=== PATIENT | female | born 1940 | race Caucasian/White ===

== ENCOUNTER → 2016-11-04 | Outpatient (CLI) | payer MEDICARE ==
--- NOTE | 2016-11-05 13:04 | MM ---
Reason for exam: screening (asymptomatic). Last mammogram was performed 1 year and 1 month ago. History: Patient is postmenopausal. Took estrogen for 6 months. Physical Findings: A clinical breast exam by your physician is recommended on an annual basis and results should be correlated with mammographic findings. MG 3D Screening Mammo W/Cad Bilateral CC and MLO view(s) were taken. Prior study comparison: October 16, 2015, bilateral MG 3d screening mammo w/cad. September 27, 2014, bilateral MG screening mammo w CAD. There are scattered fibroglandular densities. Finding: There are few typically benign round calcifications in both breasts. There is no discrete abnormality. ASSESSMENT: Benign, BI-RAD 2 RECOMMENDATION: Routine screening mammogram of both breasts in 1 year.
== END | disposition home or self-care (01) ==
LOC: RADMAMWWP 07:55
PROVIDERS: ATTEND Obstetrics & Gynecology
DX: Z12.31 Encounter for screening mammogram for malignant neoplasm of breast (principal)
CPT/HCPCS: 77063; G0202

== ENCOUNTER → 2017-11-28 | Outpatient (CLI) | payer MEDICARE ==
--- NOTE | 2017-11-30 09:45 | MM ---
Reason for exam: screening (asymptomatic). Last mammogram was performed 1 year and 1 month ago. History: Patient is postmenopausal. Took estrogen for 6 months. Physical Findings: A clinical breast exam by your physician is recommended on an annual basis and results should be correlated with mammographic findings. MG 3D Screening Mammo W/Cad Bilateral CC and MLO view(s) were taken. Prior study comparison: November 04, 2016, bilateral MG 3d screening mammo w/cad. October 16, 2015, bilateral MG 3d screening mammo w/cad. No significant changes when compared with prior studies. ASSESSMENT: Incomplete: need additional imaging evaluation, BI-RAD 0 RECOMMENDATION: Ultrasound of the left breast. (medially at the site of lump) [facility] will attempt to contact patient to return for ultrasound.
== END | disposition home or self-care (01) ==
LOC: RADMAMWWP 14:49
PROVIDERS: ATTEND Obstetrics & Gynecology
DX: Z12.31 Encounter for screening mammogram for malignant neoplasm of breast (principal)
CPT/HCPCS: 77063; 77067

== ENCOUNTER → 2017-12-05 | Outpatient (CLI) | payer MEDICARE ==
--- NOTE | 2017-12-06 12:24 | USB ---
Reason for exam: additional evaluation requested from abnormal screening. History: Patient is postmenopausal. Took estrogen for 6 months. Physical Findings: Nurse Summary: left breast palpable medial aspect, 9 o'clock, movable, soft, 1 x 1cm, non-tender only felt with patient lying flat, mimics right breast medial tissue at 3 o'clock (nurse ts). US Breast Workup Limited LT Left limited breast ultrasound including focal area of concern, retroareolar and axilla demonstrates no cystic or solid lesion seen. Scanned 9-12 o'clock. No solid or cystic lesion at the palpable site, 9 o'clock. These results were verbally communicated with the patient and result sheet given to the patient on 12/05/17. ASSESSMENT: Negative, BI-RAD 1 RECOMMENDATION: Return to routine screening mammogram schedule for both breasts. Manage on a clinical basis with regard to any suspicious palpable abnormality.
== END | disposition home or self-care (01) ==
LOC: RADUSWWP 14:41
PROVIDERS: ATTEND Obstetrics & Gynecology
DX: R92.8 Other abnormal and inconclusive findings on diagnostic imaging of breast (principal)

== ENCOUNTER → 2018-12-18 | Outpatient (CLI) | payer MEDICARE ==
--- NOTE | 2018-12-20 09:45 | MM ---
Reason for exam: screening (asymptomatic). Last mammogram was performed 1 year and 1 month ago. History: Patient is postmenopausal. Took estrogen for 6 months. Physical Findings: A clinical breast exam by your physician is recommended on an annual basis and results should be correlated with mammographic findings. MG 3D Screening Mammo W/Cad Bilateral CC and MLO view(s) were taken. Prior study comparison: November 28, 2017, bilateral MG 3d screening mammo w/cad. November 04, 2016, bilateral MG 3d screening mammo w/cad. No significant changes when compared with prior studies. ASSESSMENT: Benign, BI-RAD 2 RECOMMENDATION: Routine screening mammogram of both breasts in 1 year.
== END | disposition home or self-care (01) ==
LOC: RADMAMWWP 11:38
PROVIDERS: ATTEND Obstetrics & Gynecology
DX: Z12.31 Encounter for screening mammogram for malignant neoplasm of breast (principal)
CPT/HCPCS: 77063; 77067

== ENCOUNTER → 2019-11-12 | Outpatient (CLI) | payer MEDICARE ==
[2019-11-12 12:24] LABS: HCT 41.2 % (34.0-46.0); HGB 14.3 gm/dL (11.4-16.0); MCH 32.2 pg (25.0-35.0); MCHC 34.8 g/dL (31.0-37.0); MCV 92.7 fL (80.0-100.0); Platelet Count 159 k/uL (150-450); RBC 4.45 m/uL (3.80-5.40); RDW 13.4 % (11.5-15.5); WBC 6.5 k/uL (3.8-10.6)
== END | disposition home or self-care (01) ==
LOC: LABPAT 11-07 09:50
PROVIDERS: ATTEND Internal Medicine Interventional Cardiology
DX: Z01.818 Encounter for other preprocedural examination (principal); I25.10 Atherosclerotic heart disease of native coronary artery without angina pectoris
CPT/HCPCS: 36415; 80051; 82565; 84520; 85027

== ENCOUNTER 2019-11-20 09:15 | Day surgery (SDC) | payer MEDICARE ==
[2019-11-14 15:07] VITALS: BMI 31.1
[~2019-11-20 09:15] MED LIST: ALPRAZolam 0.25 MG TAB PO PRN; ALPRAZolam 0.5 MG TAB PO PRN; ASPIRIN 325 MG TAB PO STA; NITROGLYCERIN SL TABS 0.4 MG TAB SUBLINGUAL PRN; SODIUM CHLORIDE 0.9% 1,000 ML in EMPTY BAG 1 BAG IV ONE
[2019-11-20] MEDS ORDERED: SODIUM CHLORIDE 0.9% 1,000 ML IV ONE (09:54)
[2019-11-20 09:56] VITALS: RESP 16
[2019-11-20] MEDS ORDERED: LIDOCAINE 1% INJ 10MG/ML (20 ML MDV) ONE (11:46)
[2019-11-20] MEDS ORDERED: MIDAZOLAM 2 MG/2 ML VIAL IV ONE (12:00)
[2019-11-20] MEDS ORDERED: LIDOCAINE 1% INJ 10MG/ML (20 ML MDV) SQ ONE (12:02)
[2019-11-20] MEDS ORDERED: IOPAMIDOL-370 100ML BTL INJ ONE ×3 (12:28→13:27)
[2019-11-20] MEDS ORDERED: BIVALIRUDIN BOLUS 250 MG/50 ML IV ONE (12:44)
[2019-11-20] MEDS ORDERED: BIVALIRUDIN 250 MG in SODIUM CHLORIDE 0.9% 50 ML IV ONE (12:44)
[2019-11-20] MEDS ORDERED: niCARdipine 25 MG/10 ML VIAL ONE (13:02)
[2019-11-20] MEDS ORDERED: niCARdipine Syringe (1,000 mcg/10 mL) INTRACORON ONE (13:10)
[2019-11-20] MEDS: niCARdipine Syringe (1,000 mcg/10 mL) INTRACORON ONE ×2 (13:22→13:27)
[2019-11-20] MEDS ORDERED: CLOPIDOGREL 75 MG TAB ONE (13:25)
[2019-11-20] MEDS ORDERED: CLOPIDOGREL 75 MG TAB PO ONE (13:26)
[2019-11-20] MEDS ORDERED: MAG HYDROX/AL HYDROX/SIMETH 30 ML CUP PO PRN (13:53)
[2019-11-20] MEDS ORDERED: ZOLPIDEM 5 MG TAB PO PRN (13:53)
[2019-11-20] MEDS ORDERED: RX INFO: IV CONTRAST WAS GIVEN 1 EACH MISC MISCELLANE PRN (13:53)
[2019-11-20] MEDS ORDERED: ATROPINE SULFATE 0.1 MG/ML 10ML SYRINGE IV PRN (13:53)
--- NOTE | 2019-11-20 17:27 | PCN ---
PROCEDURE NOTE DATE OF SERVICE: 11/20/2019. PROCEDURE: 1. Coronary angiography, selective injection of bypass grafts and left internal mammary artery injection. 2. Percutaneous transluminal coronary angioplasty and stenting of a totally occluded saphenous vein graft to the obtuse marginal branch of circumflex with 2 drug- eluting stents. PERFORMED BY: Dr. Laura Montoya. Moderate conscious sedation time was 90 minutes. Patient was administered Versed. Oxygen saturation, hemodynamics and EKG were monitored closely. CLINICAL INFORMATION: Mrs. Janel Penn is an 79-year-old lady with a known history of CAD and abdominal aortic aneurysm, status post surgical repair. She had a bypass surgery in 2007 with a left internal mammary artery graft to LAD, vein graft to the first diagonal, vein graft to the obtuse marginal and vein graft to the PDA branch of RCA. Because of a strongly positive stress test and symptoms of angina, she was advised coronary angiography after due discussion regarding risks, benefits and options. PROCEDURE NOTE: Under local anesthesia and strict aseptic precautions, a 6-Trinid[place] introducer was placed in the right femoral artery. Using a JL4 catheter, I performed selective coronary angiography of the left coronary artery. A Mendoza catheter was used to perform selective coronary angiography of the left internal mammary artery graft. I used an AR2 catheter to perform selective coronary angiography of the [place] RCA, vein graft to the right coronary artery as well as vein graft to the diagonal branch and vein graft to the obtuse marginal branch. LV pressures were not obtained. Following the cardiac cath I proceeded to perform PCI of a totally occluded vein graft to the obtuse marginal, which was the culprit vessel where ischemia was noted in the anterolateral wall. CORONARY ANGIOGRAPHY FINDINGS: LEFT MAIN CORONARY ARTERY: This is a short vessel that has a distal lesion of about 50% and it bifurcates into LAD and circumflex. The lesion is about 50%, located in the body of the left main. It bifurcates into LAD and circumflex. LEFT ANTERIOR DESCENDING CORONARY ARTERY: This vessel is totally occluded after diagonal branch and the diagonal branch has 80% stenosis, and a septal branch is free of significant disease. LAD is 100% occluded. LEFT POSTERIOR CIRCUMFLEX CORONARY ARTERY: This vessel gives off a first obtuse marginal that has a long area of 90% disease and there is competitive flow to some extent, but the flow in the obtuse marginal is pretty much limited, and obtuse marginal is widely patent but appears small because of reduced flow. Continuation of circumflex in the AV groove is diffusely diseased. RIGHT CORONARY ARTERY: This vessel is totally occluded with very limited antegrade flow. The entire RCA is diseased all the way to the bifurcation and then it opacifies the PDA and PLV branches, but the entire vessel is diffusely disease with stenosis in the range of 80% to 90%. SAPHENOUS VEIN GRAFT TO THE PDA branch of RCA: Body of the graft at the origin is free of significant disease. In the proximal portion of the body there is a 60% to 70% narrowing. In the mid portion there is a 90% narrowing and the attachment is free of significant disease. The PDA has mild diffuse disease throughout. The RCA graft is therefore significantly diseased in the body of the graft. SAPHENOUS VEIN GRAFT TO THE OBTUSE MARGINAL BRANCH OF CIRCUMFLEX: This graft is totally occluded, seen as a stump. SAPHENOUS VEIN GRAFT TO THE DIAGONAL BRANCH OF LAD: This graft is patent, has about a 30% to 40% narrowing and brisk flow. Opacified diagonal is free of significant disease. FINAL IMPRESSION: This patient has a totally occluded LAD and highly diseased circumflex marginal. RCA has diffuse disease of 80% to 90% all the way to the bifurcation. Vein graft to RCA is patent with 2 areas of disease in the body of the graft of 60% and 90%. Vein graft to the obtuse marginal is totally occluded 100% culprit lesion. The HENRY to LAD is patent, but I did not get a good selective injection. The vein graft to the diagonal is patent with 30% to 40% narrowing. The left internal mammary artery graft was subselectively injected, but there is decent flow and no significant disease noted based on the available angiograms. RECOMMENDATIONS: I recommended PCI of the obtuse marginal vein graft that was totally occluded and proceeded to perform this in the same setting. PCI PROCEDURE DETAILS: The patient was administered 600 mg of Plavix and Angiomax bolus and infusion was given. I used a left bypass guide catheter to cannulate the vein graft to the obtuse marginal. A run-through wire was used to cross the lesion with the help of a 2.5 balloon. I was able to cross the lesion. Wire was kept distally in the [place] circumflex marginal. Multiple inflations were then given with a 3.0 balloon. Then I switched over to a 3.5 caliber NC Emerge balloon of 20 mm length and the entire vessel was dilated throughout. Subsequently I deployed two 4.0 caliber stents. The distal stent was a 38 mm long 4.0 stent and telescoping into it proximally was an 18 mm stent. Excellent angiographic result without complication was achieved. Patient did not have any symptoms. A brisk ARLEN-3 flow was noted. There is some diffuse disease in the distal half of the graft, but I did not put any additional stents. The flow into the vessel was excellent with a good blush. The sheath was taken out and Angio-Seal device used to secure hemostasis. The patient was sent to the room in a stable condition. Results were discussed with the patient and family. I expect she will be discharged tomorrow if she remains stable. The patient will need RCA graft intervention, which will be performed in 3 weeks. Circumflex graft intervention was excellent with a very nice result. MMDOMINGOL / NAZARION: [id number] /
[2019-11-20] MEDS: SODIUM CHLORIDE 0.9% 1,000 ML IV SCH ×3 (19:00→22:31)
[2019-11-20] MEDS: METOPROLOL TARTRATE 25 MG TAB PO SCH (20:04)
[2019-11-20] MEDS ORDERED: ATORVASTATIN 80 MG TAB PO SCH (21:00)
[2019-11-21 06:54] LABS: Basophils % (A) 1 %; Eosinophils # (A) 0.1 k/uL (0-0.7); Eosinophils % (A) 3 %; HCT 38.9 % (34.0-46.0); HGB 12.5 gm/dL (11.4-16.0); Lymphocytes # (A) 0.8 k/uL (1.0-4.8); Lymphocytes % (A) 19 %; MCH 30.2 pg (25.0-35.0); MCV 94.3 fL (80.0-100.0); Mean Platelet Volume 7.7; Monocytes # (A) 0.3 k/uL (0-1.0); Monocytes % (A) 8 %; Neutrophils # (A) 2.8 k/uL (1.3-7.7); Neutrophils % (A) 67 %; Platelet Count 124 k/uL (150-450); RBC 4.13 m/uL (3.80-5.40); RDW 13.5 % (11.5-15.5); WBC 4.1 k/uL (3.8-10.6)
[2019-11-21 07:00] LABS: African American GFR (CKD) >90 (>60 ml/min/1.73 sqM); Anion Gap 7 mmol/L; Blood Urea Nitrogen 16 mg/dL (7-17); Calcium 8.4 mg/dL (8.4-10.2); Carbon Dioxide 20 mmol/L (22-30); Chloride 110 mmol/L (98-107); Glucose 95 mg/dL (74-99); Non-African American GFR(CKD) 87 (>60 ml/min/1.73 sqM); Sodium 137 mmol/L (137-145)
[2019-11-21 07:02] LABS: Potassium 4.2 mmol/L (3.5-5.1)
[2019-11-21] MEDS: METOPROLOL TARTRATE 25 MG TAB PO SCH (08:49)
[2019-11-21] MEDS ORDERED: hydroCHLOROthiazide 25 MG TAB PO SCH (09:00)
[2019-11-21] MEDS ORDERED: CHOLECALCIFEROL 1,000 UNIT TAB PO SCH (09:00)
[2019-11-21] MEDS ORDERED: LOSARTAN 50 MG TAB PO SCH (09:00)
[2019-11-21] MEDS ORDERED: CLOPIDOGREL 75 MG TAB PO SCH (09:00)
[2019-11-21] MEDS ORDERED: NON FORMULARY DRUG (Omega-3 Fatty Acids/Fish Oil [Fish Oil 1,000 Mg Softgel] 1 EACH) PO SCH (09:00)
[2019-11-21] MEDS ORDERED: ASPIRIN 81 MG PO SCH (09:00)
[2019-11-21] MEDS ORDERED: ISOSORBIDE MONONITRATE ER 30 MG TAB.ER.24H PO SCH (12:00)
--- NOTE | 2019-11-21 21:03 | DS ---
DISCHARGE SUMMARY DATE OF ADMISSION: 11/20/2019 DATE OF DISCHARGE: 11/21/2019. DIAGNOSES: 1. Unstable angina. 2. Hypertension. 3. Hyperlipidemia. 4. History of prior bypass surgery. 5. History of prior abdominal aortic aneurysm surgical resection. HOSPITAL COURSE: Mrs. Penn was admitted electively because of symptoms of angina and abnormal stress test. Cardiac cath revealed that the vein graft to the obtuse marginal was totally occluded. This was dilated and stented with 2 drug-eluting stents with excellent result. She has another right coronary graft which has a 90% stenosis which may be addressed later on. She also has a patent HENRY to LAD and another diagonal graft is free of significant disease. Her post-procedure course was uneventful. The right groin is clean and dry with a good pulse. Vitals are stable. No JVD. S1, S2 heard normally. Short systolic murmur noted. Lungs are clear. Abdomen and lower extremity exam unchanged. PLAN: Plan is to increase activity and discharge her today. Her laboratory data and EKG do not reveal any concerns. Discharge instructions regarding activity, diet and medications were given. I will see the patient within a week after her discharge. She will call me if there is a question, concern or problem. Patient had an excellent angiographic result, and I will address the PCI of right coronary artery at a later date. MMODL / IJN: [id number] /
[2019-11-23 05:32] VITALS: BP 135/74; PULSE 66; TEMP 98.7
== END 2019-11-21 13:28 | disposition home or self-care (01) ==
LOC: CATHCVL 09:15 → 3SCARD 18:18 → CATHCVL 11-21 13:28
PROVIDERS: ATTEND Internal Medicine Interventional Cardiology
DX: I25.110 Atherosclerotic heart disease of native coronary artery with unstable angina pectoris (principal); I25.82 Chronic total occlusion of coronary artery; I10 Essential (primary) hypertension; I71.4 Abdominal aortic aneurysm, without rupture; E78.5 Hyperlipidemia, unspecified; Z95.1 Presence of aortocoronary bypass graft
CPT/HCPCS: 93455; 80048; 85025; C9604; C1760; C1887; C1725 ×3; C1769 ×4; C1874; J2250; J2001; J0583; Q9967

== ENCOUNTER → 2019-12-07 | Outpatient (CLI) | payer MEDICARE | END | disposition home or self-care (01) | LOC: LABWHC1 10:12 | PROVIDERS: ATTEND Internal Medicine Interventional Cardiology | DX: J39.9 Disease of upper respiratory tract, unspecified (principal) | CPT/HCPCS: U0003; C9803 ==

== ENCOUNTER → 2019-12-17 | Outpatient (CLI) | payer MEDICARE ==
[2019-12-17 14:52] LABS: Potassium 4.1 mmol/L (3.5-5.1)
[2019-12-17 14:57] LABS: HCT 38.3 % (34.0-46.0); HGB 12.9 gm/dL (11.4-16.0); MCHC 33.6 g/dL (31.0-37.0); MCV 92.2 fL (80.0-100.0); Platelet Count 162 k/uL (150-450); RBC 4.16 m/uL (3.80-5.40); RDW 13.5 % (11.5-15.5); WBC 5.8 k/uL (3.8-10.6)
== END | disposition home or self-care (01) ==
LOC: LABPAT 13:44
PROVIDERS: ATTEND Internal Medicine Interventional Cardiology
DX: Z01.818 Encounter for other preprocedural examination (principal); I25.2 Old myocardial infarction
CPT/HCPCS: 36415; 80051; 82565; 84520; 85027

== ENCOUNTER 2019-12-26 09:16 | Day surgery (SDC) | payer MEDICARE ==
[~2019-12-26 09:16] MED LIST changes: +ATORVASTATIN 80 MG TAB PO STA
[2019-12-26] MEDS ORDERED: SODIUM CHLORIDE 0.9% 1,000 ML IV ONE (10:18)
[2019-12-26] MEDS ORDERED: MIDAZOLAM 2 MG/2 ML VIAL IV ONE (11:40)
[2019-12-26] MEDS ORDERED: LIDOCAINE 1% INJ 10MG/ML (20 ML MDV) SQ ONE ×2 (11:43)
[2019-12-26] MEDS: HYDROmorphone 1 MG/ML 1 ML SYRINGE IVP ONE ×2 (11:49→12:27)
[2019-12-26] MEDS ORDERED: BIVALIRUDIN BOLUS 250 MG/50 ML IV ONE (11:59)
[2019-12-26] MEDS ORDERED: BIVALIRUDIN 250 MG in SODIUM CHLORIDE 0.9% 50 ML IV ONE (11:59)
[2019-12-26] MEDS ORDERED: IOPAMIDOL-370 100ML BTL INJ ONE ×2 (12:22→12:34)
[2019-12-26] MEDS ORDERED: niCARdipine Syringe (1,000 mcg/10 mL) INTRACORON ONE (12:25)
[2019-12-26] MEDS ORDERED: CLOPIDOGREL 75 MG TAB PO ONE (12:32)
[2019-12-26] MEDS ORDERED: RX INFO: IV CONTRAST WAS GIVEN 1 EACH MISC MISCELLANE PRN (12:47)
[2019-12-26] MEDS ORDERED: NITROGLYCERIN SL TABS 0.4 MG TAB SUBLINGUAL PRN ×2 (12:47→14:58)
[2019-12-26] MEDS ORDERED: MAG HYDROX/AL HYDROX/SIMETH 30 ML CUP PO PRN (12:47)
[2019-12-26] MEDS ORDERED: ZOLPIDEM 5 MG TAB PO PRN (12:47)
[2019-12-26] MEDS ORDERED: ATROPINE SULFATE 0.1 MG/ML 10ML SYRINGE IV PRN (12:47)
--- NOTE | 2019-12-26 14:24 | PTCA ---
PERCUTANEOUSTRANS CORORONARY ANGIOGRAPHY DATE OF SERVICE: 12/26/2019. PROCEDURE: 1. Coronary angiography and selective injection of vein graft to the obtuse marginal branch of circumflex which was stented on 11/20/2019 with a drug-eluting stent. 2. PTCA and stenting of saphenous vein graft to the RCA with a filter wire protection with a drug-eluting stent. PERFORMED BY: Dr. Ramandeep Vogt, assisted by Dr. Laura Montoya. SEDATION: Moderate conscious sedation time was 53 minutes. Patient was administered Versed. Oxygen saturation, hemodynamics, EKG were monitored closely. CLINICAL INFORMATION: Mrs. Janel Penn is an 79-year-old lady with a known history of CAD, previous surgical abdominal aortic aneurysm repair. She had a previous aortocoronary bypass surgery in 2007 with a HENRY to LAD, vein graft to the first diagonal, vein graft to the obtuse marginal, vein graft to the PDA branch of RCA. Because of significant anginal symptoms on 11/20/2019, I performed coronary angiography and stenting of a totally occluded vein graft to the obtuse marginal. She is being brought in here to assess the patency of the vein graft to the obtuse marginal and then perform intervention of the RCA/PDA graft. Risks, benefits, options were reviewed. Patient understands rationale, risks, benefits, options and wishes to proceed. PROCEDURE NOTE: Under local anesthesia and strict aseptic precautions, a 6-Ukrainian introducer was placed in the right femoral artery. I used a Mendoza catheter to perform selective coronary angiography of the vein graft to the obtuse marginal and noted that it was widely patent with a ARLEN-3 flow. I then turned my attention to the RCA graft. A right coronary bypass guide catheter was used to cannulate the right coronary artery graft. The filter wire was used to cross the lesion and the filter was opened successfully well beyond the lesion in the vein graft itself. Over the filter wire, primary stenting was performed with a 3.5 caliber 12 mm Xience stent which was deployed at 13 atmospheres. Patient did not have significant symptoms. Excellent angiographic result was achieved. The filter wire could not be retrieved adequately because there was a plaque well before the site of intervention. However, the filter wire was drawn back very carefully under fluoroscopic guidance and eventually captured in the upper part of the vein graft. The filter wire along with the capture device was taken out and then the nicardipine 100 mcg was administered into the vein graft. Two injections were obtained in the TALBERT and IRISH projection. Result was excellent with ARLEN-3 flow. The sheath was then taken out. An Angio-Seal device was used to secure hemostasis. The patient received 150 mg of Plavix additionally. She was already on Plavix to begin with, along with aspirin. She also received Angiomax bolus and infusion as per protocol. The results were discussed with the patient as well as her family, specifically her sister. I expect she will be discharged tomorrow. Excellent angiographic result was achieved. MMODL / IJN: [id number] /
[2019-12-26] MEDS: METOPROLOL TARTRATE 25 MG TAB PO SCH (20:31)
[2019-12-26] MEDS: SODIUM CHLORIDE 0.9% 1,000 ML IV SCH (20:32)
[2019-12-26] MEDS ORDERED: ATORVASTATIN 80 MG TAB PO SCH (21:00)
[2019-12-27] MEDS: SODIUM CHLORIDE 0.9% 1,000 ML IV SCH (04:40)
--- NOTE | 2019-12-27 07:28 | DS ---
DISCHARGE SUMMARY DATE OF ADMISSION: 12/26/2019. DATE OF DISCHARGE: 12/27/2019 DIAGNOSES: 1. Unstable angina. 2. Coronary artery disease, status post PCI and bypass surgery. 3. Hypertension. 4. Hyperlipidemia. 5. Status post surgical repair of abdominal aortic aneurysm in the past. Mrs. Penn was brought into the hospital for elective PCI of a 90% stenosis involving a vein graft to the RCA. This was a staged intervention. About 3 to 4 weeks ago she had intervention of a totally occluded vein graft to the obtuse marginal successfully. Cardiac cath revealed that the previously stented vein graft to the obtuse marginal was widely patent. I performed stenting of a vein graft to the right coronary artery in the body of the graft with a drug-eluting stent with excellent result. Postprocedure course was uneventful. She is doing well this morning. Blood pressure is 128/70, pulse rate is about 52. No JVD. S1, S2 heard normally, short systolic murmur audible. Lungs are clear. Abdomen is soft, nontender. Right groin is clean and dry with a good pulse. Lower extremities reveal palpable distal pulses. EKG revealed a sinus mechanism with IVCD, which is unchanged. Labs are pending. Plan is to discharge her home after she gets up, ambulates and we check her labs which are pending at this time. I will see her in the office in one week. Discharge instructions regarding activity, diet and medications were given. She will continue the same medicines which include dual antiplatelet therapy and statins, and beta blockers. MMODL / IJN: [id number] /
[2019-12-27 07:52] VITALS: BP 154/68; PULSE 58; RESP 16; TEMP 97.9
[2019-12-27 07:58] LABS: Basophils % (A) 1 %; Eosinophils # (A) 0.1 k/uL (0-0.7); Eosinophils % (A) 2 %; HCT 39.2 % (34.0-46.0); HGB 12.9 gm/dL (11.4-16.0); Lymphocytes # (A) 1.2 k/uL (1.0-4.8); Lymphocytes % (A) 26 %; MCH 29.8 pg (25.0-35.0); MCHC 32.8 g/dL (31.0-37.0); MCV 90.8 fL (80.0-100.0); Mean Platelet Volume 7.8; Monocytes # (A) 0.3 k/uL (0-1.0); Monocytes % (A) 7 %; Neutrophils # (A) 2.9 k/uL (1.3-7.7); Neutrophils % (A) 62 %; Platelet Count 161 k/uL (150-450); RBC 4.32 m/uL (3.80-5.40); RDW 13.3 % (11.5-15.5); WBC 4.6 k/uL (3.8-10.6)
[2019-12-27 08:13] LABS: African American GFR (CKD) >90 (>60 ml/min/1.73 sqM); Anion Gap 7 mmol/L; Blood Urea Nitrogen 14 mg/dL (7-17); Calcium 9.1 mg/dL (8.4-10.2); Carbon Dioxide 27 mmol/L (22-30); Chloride 104 mmol/L (98-107); Glucose 119 mg/dL (74-99); Non-African American GFR(CKD) 82 (>60 ml/min/1.73 sqM); Potassium 3.6 mmol/L (3.5-5.1); Sodium 138 mmol/L (137-145)
[2019-12-27] MEDS ORDERED: MULTIVITAMINS, THERA 1 EACH TAB PO SCH (09:00)
[2019-12-27] MEDS ORDERED: NON FORMULARY DRUG (Ubidecarenone [Co Q-10] 200 MG) PO SCH (09:00)
[2019-12-27] MEDS ORDERED: NON FORMULARY DRUG (Aspirin [Adult Low Dose Aspirin Ec] 81 MG) PO SCH (09:00)
[2019-12-27] MEDS ORDERED: ASPIRIN 81 MG PO SCH (09:00)
[2019-12-27] MEDS ORDERED: CLOPIDOGREL 75 MG TAB PO SCH ×2 (09:00)
[2019-12-27] MEDS ORDERED: hydroCHLOROthiazide 25 MG TAB PO SCH (09:00)
[2019-12-27] MEDS ORDERED: CHOLECALCIFEROL 1,000 UNIT TAB PO SCH (09:00)
[2019-12-27] MEDS ORDERED: FATTY ACIDS PO SCH (09:00)
[2019-12-27] MEDS ORDERED: LOSARTAN 50 MG TAB PO SCH (09:00)
[2019-12-27] MEDS ORDERED: FISH OIL PO SCH (09:00)
[2019-12-27] MEDS ORDERED: OMEGA PO SCH (09:00)
[2019-12-27] MEDS: METOPROLOL TARTRATE 25 MG TAB PO SCH (09:18)
[2019-12-27 09:28] VITALS: BMI 30.9
[2019-12-27] MEDS ORDERED: ISOSORBIDE MONONITRATE ER 30 MG TAB.ER.24H PO SCH (12:00)
== END 2019-12-27 09:53 | disposition home or self-care (01) ==
LOC: CATHCVL 09:16 → 3NCARDOBS 14:36 → CATHCVL 12-27 09:53
PROVIDERS: ATTEND Internal Medicine Interventional Cardiology
DX: I25.110 Atherosclerotic heart disease of native coronary artery with unstable angina pectoris (principal); I10 Essential (primary) hypertension; I71.4 Abdominal aortic aneurysm, without rupture; E78.5 Hyperlipidemia, unspecified; E78.00 Pure hypercholesterolemia, unspecified; E66.9 Obesity, unspecified; Z95.1 Presence of aortocoronary bypass graft; Z79.02 Long term (current) use of antithrombotics/antiplatelets; Z79.82 Long term (current) use of aspirin; Z79.899 Other long term (current) drug therapy; Z72.0 Tobacco use; Z68.30 Body mass index [BMI] 30.0-30.9, adult; Z98.890 Other specified postprocedural states
CPT/HCPCS: 80048; 85025; C9604; C1769 ×4; C1884; C1887; C1894; C1874; J2250; J2001; J1170; J0583; Q9967

== ENCOUNTER → 2021-02-03 | Outpatient (CLI) | payer MEDICARE ==
--- NOTE | 2021-02-03 15:33 | BD ---
EXAMINATION TYPE: Axial Bone Density DATE OF EXAM: 02/03/2021 COMPARISON: NONE CLINICAL HISTORY: Height: 5 FT 1 1/2 IN Weight: 169 FRAX RISK QUESTIONS: Alcohol (3 or more units per day): NO Family History (Parent hip fracture): NO Glucocorticoids (More than 3mos): NO (Ex: prednisone, prednisolone, methylprednisolone, dexamethasone, and hydrocortisone). History of Fracture in Adulthood: NO Secondary Osteoporosis: 1. Type 1 Diabetes: NO 2. Hyperthyroidism: NO 3. Menopause before 45: NO 4. Malnutrition: NO 5. Chronic liver disease: NO Rheumatoid Arthritis: NO Current Tobacco Use: NO RISK FACTORS HISTORY OF: Surgery to Spine/Hip(right/left)/Wrist (right/left): RT HIP REPLACEMENT When: 2016 Family History of Osteoporosis: NO Active: MODERATE Diet low in dairy products/other sources of calcium: NO Postmenopausal woman: AGE 53 Take estrogen and/or progesterone medications: TOOK HRT FOR ONE YEAR Lost more than 2 inches in height since high school: YES MEDICATIONS: Additional Medications: ATORVASTATIN, PLAVIX, LISINOPRIL, METOPROLOL, Additional History: EXAM MEASUREMENTS: Bone mineral densitometry was performed using the [employer] System. Bone mineral density as measured about the Lumbar spine is: ----- L1-L4(G/cm2): 1.339 T Score Values are as follows: ----- L2: -0.6 ----- L3: 1.8 ----- L4: 3.0 ----- L1-L4: 1.3 Bone mineral density has: INCREASED 4.7 % since study of: 2015 Bone mineral density about the L hip (g/cm2): 0.866 T Score values are as follows: -----L Neck: -1.2 -----L Total: -1.2 Bone mineral density has: DECREASED -0.5 % since study of: 2015 IMPRESSION: Osteopenia (T Score between -2.5 and -1). There is slightly increased risk of fracture and the patient may be considered for treatment. Re-Screen 2-5 years. NOTE: T-SCORE=SD OF THE YOUNG ADULT MEAN.
== END | disposition home or self-care (01) ==
LOC: RADBDWWP 09:13
PROVIDERS: ATTEND Internal Medicine
DX: M85.852 Other specified disorders of bone density and structure, left thigh (principal)
CPT/HCPCS: 77080

== ENCOUNTER → 2021-07-07 | Outpatient (CLI) | payer MEDICARE ==
[2021-07-07 14:56] LABS: HCT 41.3 % (37.2-46.3); HGB 13.9 g/dL (12.0-15.0); MCH 30.7 pg (27.0-32.0); MCHC 33.7 g/dL (32.0-37.0); MCV 91.2 fL (80.0-97.0); NRBC Per 100 WBC 0 /100 WBCS (0.0-0.0); Platelet Count 174 X 10*3/uL (140-440); RBC 4.53 X 10*6/uL (4.10-5.20); RDW 13.4 % (11.5-14.5); WBC 5.62 X 10*3/uL (4.50-10.00)
[2021-07-07 15:10] LABS: African American GFR (CKD) 83.5 (60.0-200.0); Anion Gap 14.4 mmol/L (10.00-18.00); Blood Urea Nitrogen 12.9 mg/dL (9.0-27.0); Carbon Dioxide 25.8 mmol/L (20.0-27.5); Potassium 4.4 mmol/L (3.5-5.5)
[2021-07-08 13:28] LABS: Coronavirus SARS CoV-2 Not Detected (Not Detected)
== END | disposition home or self-care (01) ==
LOC: LABWHC1 09:13
PROVIDERS: ATTEND Internal Medicine Interventional Cardiology
DX: Z01.812 Encounter for preprocedural laboratory examination (principal); Z20.822 Contact with and (suspected) exposure to COVID-19; I25.10 Atherosclerotic heart disease of native coronary artery without angina pectoris
CPT/HCPCS: 80051; 82565; 84520; 85027; 36415; U0003; C9803

== ENCOUNTER 2021-07-10 06:38 | Day surgery (SDC) | payer MEDICARE ==
[2021-07-09 08:14] VITALS: BMI 30.5
[~2021-07-10 06:38] MED LIST changes: -ATORVASTATIN 80 MG TAB PO STA; -SODIUM CHLORIDE 0.9% 1,000 ML in EMPTY BAG 1 BAG IV ONE; +SODIUM CHLORIDE 0.9% 1,000 ML in EMPTY BAG 1 BAG IV SCH
[2021-07-10] MEDS ORDERED: SODIUM CHLORIDE 0.9% 1,000 ML IV ONE (06:55)
[2021-07-10] MEDS ORDERED: HEPARIN SODIUM,PORCINE 2,500 UNIT in SODIUM CHLORIDE 0.9% 250 ML IRRIGATION PRN (07:00)
[2021-07-10] MEDS ORDERED: HEPARIN SODIUM,PORCINE 10,000 UNIT in SODIUM CHLORIDE 0.9% 1,000 ML IRRIGATION PRN (07:00)
[2021-07-10] MEDS ORDERED: HEPARIN SODIUM 1,000 UN/ML (10ML VL) ONE (07:13)
[2021-07-10] MEDS ORDERED: VERAPAMIL 2.5 MG/ML 2 ML AMP ONE (07:13)
[2021-07-10] MEDS ORDERED: LIDOCAINE 1% INJ 10MG/ML (20 ML MDV) ONE (07:13)
[2021-07-10] MEDS ORDERED: fentaNYL (PF) 50 MCG/ML 2 ML AMP ONE (07:14)
[2021-07-10 07:21] VITALS: TEMP 98
[2021-07-10] MEDS: MIDAZOLAM 2 MG/2 ML VIAL IVP ONE ×2 (07:46→07:56)
[2021-07-10] MEDS ORDERED: LIDOCAINE 1% INJ 10MG/ML (20 ML MDV) SQ ONE (07:55)
[2021-07-10] MEDS ORDERED: fentaNYL (PF) 50 MCG/ML 2 ML AMP IVP ONE (08:20)
[2021-07-10] MEDS ORDERED: IOPAMIDOL-370 100ML BTL INJ ONE ×2 (08:23→08:57)
[2021-07-10] MEDS ORDERED: FUROSEMIDE 10 MG/ML 4 ML VIAL ONE (08:31)
[2021-07-10] MEDS ORDERED: FUROSEMIDE 10 MG/ML 4 ML VIAL IV ONE (08:32)
[2021-07-10] MEDS ORDERED: HEPARIN SODIUM 1,000 UN/ML (10ML VL) IVP ONE (08:33)
[2021-07-10] MEDS ORDERED: RX INFO: IV CONTRAST WAS GIVEN 1 EACH MISC MISCELLANE PRN (09:10)
[2021-07-10] MEDS ORDERED: SODIUM CHLORIDE 0.9% 1,000 ML IV SCH (09:15)
--- NOTE | 2021-07-10 10:21 | CC ---
CARDIAC CATHETERIZATION REPORT DATE OF SERVICE: 07/10/2021. PROCEDURE: 1. Left heart catheterization, coronary angiography, selective injection of bypass grafts. 2. Percutaneous transluminal coronary angioplasty of vein graft to the obtuse marginal branch of circumflex. PERFORMED BY: Dr. Laura Montoya. Moderate conscious sedation time was 58 minutes. Patient was administered Versed. Oxygen saturation, hemodynamics and EKG were monitored closely. CLINICAL INFORMATION: Mrs. Janel Penn is an 81-year-old lady with a history of CAD, prior bypass surgery in 2007 with a HENRY to LAD, three separate vein grafts to the diagonal branch of LAD, PDA branch of RCA and also to obtuse marginal branch of circumflex. Subsequently she had surgical repair of infrarenal aortic aneurysm as well. In 2019, because of unstable angina, in November I performed stenting of a totally occluded vein graft to the obtuse marginal, and in December this was patent and I opened up the PDA vein graft with a good result. Because of symptoms of exertional shortness of breath and abnormal stress test suggestive of ischemia in the inferolateral area, she was advised a repeat cardiac cath after due discussion. Risks, benefits, options, rationale were explained. PROCEDURE NOTE: Under local anesthesia and strict aseptic precautions, a 6-Setswana introducer was placed in the right femoral artery. JL4 catheter was used to perform selective coronary angiography of left coronary artery, a Mendoza catheter was used for the HENRY injection, which was a subselective injection. An AR2 catheter was used to perform selective injection of [place] RCA and the three vein grafts. A pigtail catheter was used to check LV pressure, but LV gram was not performed. Following this, I attempted the PTCA of vein graft to the obtuse marginal which was totally occluded. Two inflations were given. The wire was advanced to about the mid portion of the body of the graft, but the vessel did not open up after two inflations with a noncompliant balloon, and therefore I abandoned the procedure; this was an unsuccessful PTCA. The sheath was then taken out and Angio-Seal device used to secure hemostasis and she was sent to the room in a stable condition. Results were discussed with the patient. There was no family available. Her neighbor/friend brought her for the procedure. CARDIAC CATHETERIZATION FINDINGS: The left ventricular end-diastolic pressure was about 21 mmHg. There was no gradient across the aortic valve. CORONARY ANGIOGRAPHY FINDINGS: LEFT MAIN CORONARY ARTERY: This is a short patent vessel; may have a 30% blockage, some calcification. It bifurcates into LAD and circumflex. LEFT ANTERIOR DESCENDING CORONARY ARTERY: This vessel is totally occluded in the mid portion after a diagonal branch and no antegrade flow is noted in the LAD. LEFT POSTERIOR CIRCUMFLEX CORONARY ARTERY: This is probably a nondominant vessel, gives off a first obtuse marginal that comes off almost at 90 degrees, and there is a long 90% lesion, after which the attachment of the bypass graft is noted and then the opacified obtuse marginal beyond the bypass graft attachment appears to be of good caliber and fair distribution. The circumflex marginal therefore have a long 90% lesion. There is a groove branch that is free of significant disease, and it also gives off a left atrial circumflex branch. RIGHT CORONARY ARTERY: Dominant vessel. Diffusely diseased throughout. It has about 70% to 90% blockages and the PDA seemed to have some competitive flow distally. LEFT INTERNAL MAMMARY ARTERY GRAFT TO LAD: There was a lot of calcification and tortuosity. I had difficulty getting a selective injection. A subselective injection suggests that the HENRY is widely patent with very good flow all the way to the apex. SAPHENOUS VEIN GRAFT TO THE PDA BRANCH OF RCA: This graft is widely patent, has no significant disease at the ostium of the insertion site. The body has moderate disease. Stented area is widely patent. It opacifies the entire PDA and also the PLV branches. This graft has good flow. This was stented in December 2019. The body of graft was stented. Flow is excellent with moderate 30% to 40% disease in the body of the graft, but the origin and insertion site are free of significant disease, and opacified PDA has no significant disease. SAPHENOUS VEIN GRAFT TO THE OBTUSE MARGINAL: This graft is totally occluded, seen as a stump. This was stented in November 2019. At that time this was a total occlusion. SAPHENOUS VEIN GRAFT TO THE DIAGONAL BRANCH OF LAD: This graft has disease in the body of the graft. There are areas of disease. One area looks fairly tight. The other one is at least 50%. The tight area is probably 80%. Small-distribution graft, but the diagonal that is opacified is also small in caliber and distribution. No significant disease within the diagonal. Body of the graft has about 80% narrowing in one area and 50% in the rest of the territory. Left ventriculogram was not performed. 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 Diagonal graft also has disease in the body. One area has almost 80% and one area has 50%. Vein graft to the PDA branch of RCA is patent with decent flow, about 30% to 40% disease in body of the graft. Total occlusion of the mid LAD after diagonal branch. Left main has 30% disease. [place] RCA is diffusely diseased. Circumflex marginal has a long 90% lesion. Filling pressures are elevated, but no gradient across aortic valve. RECOMMENDATIONS: I recommended PTCA of the totally occluded obtuse marginal graft and proceeded to perform this in the same setting. PERCUTANEOUS TRANSLUMINAL CORONARY ANGIOPLASTY PROCEDURE DETAILS: I used a left bypass guide catheter and a long Whisper wire with a SuperCross catheter. With this I was able to cross the total occlusion and went about to the proximal one third of the body of the graft. Beyond this I could not advance the wire, even with the SuperCross. I then gave two inflations with a 3.0, 12 mm NC Trek balloon, but not much antegrade flow was noted. It appeared that this is a chronic occlusion and probability of success rate is low, and also the possibility of keeping this vessel open is also low. I therefore abandoned the procedure and suggested that we will pursue PTCA of the [place] long diseased obtuse marginal branch of circumflex in another setting and also consider diagonal PTCA at that time. Intervention of the diagonal graft body also can be performed in the same setting. However, I will discuss different options. Patient will be discharged home later on today and I will see her in the office next week. Details were explained to the patient. We will do intervention of the [place] obtuse marginal, which is going to be a difficult procedure, given the tortuosity, angulation, chronicity of the lesion and the length of lesion. The vein graft to the diagonal also will need to be stented, but that will not be a technically difficult one. Discussed with the patient. Home today. MMODL / IJN: [id number] /
[2021-07-10 14:55] VITALS: RESP 16
[2021-07-10 15:50] VITALS: BP 136/71; PULSE 69
[2021-07-10] MEDS ORDERED: ATORVASTATIN 80 MG TAB PO SCH (21:00)
[2021-07-11] MEDS ORDERED: CLOPIDOGREL 75 MG TAB PO SCH (09:00)
[2021-07-11] MEDS ORDERED: NON FORMULARY DRUG (Omega-3 Fatty Acids/Fish Oil [Fish Oil 1,000 Mg Softgel] 1 EACH Capsul PO SCH (09:00)
[2021-07-11] MEDS ORDERED: NON FORMULARY DRUG (Ubidecarenone [Co Q-10] 100 MG Capsule) PO SCH (09:00)
[2021-07-11] MEDS ORDERED: METOPROLOL TARTRATE 25 MG TAB PO SCH (09:00)
[2021-07-11] MEDS ORDERED: NON FORMULARY DRUG (Aspirin [Adult Low Dose Aspirin Ec] 81 MG Tablet.Dr) PO SCH (09:00)
[2021-07-11] MEDS ORDERED: NON FORMULARY DRUG (Losartan/Hydrochlorothiazide [Losartan-Hctz 100-25 Mg Tab] 1 EACH Tabl PO SCH (09:00)
[2021-07-11] MEDS ORDERED: MULTIVITAMINS, THERA 1 EACH TAB PO SCH (09:00)
[2021-07-11] MEDS ORDERED: NON FORMULARY DRUG (Biotin [Biotin Disolve] 5,000 MCG Tablet) PO SCH (09:00)
[2021-07-11] MEDS ORDERED: NON FORMULARY DRUG (Cholecalciferol 1,000 UNIT Tab) PO SCH (09:00)
== END 2021-07-10 17:05 | disposition home or self-care (01) ==
LOC: CATHCVL 06:38
PROVIDERS: ATTEND Internal Medicine Interventional Cardiology
DX: I25.10 Atherosclerotic heart disease of native coronary artery without angina pectoris (principal); I25.810 Atherosclerosis of coronary artery bypass graft(s) without angina pectoris; I25.82 Chronic total occlusion of coronary artery; R94.39 Abnormal result of other cardiovascular function study; I71.4 Abdominal aortic aneurysm, without rupture; I10 Essential (primary) hypertension; E78.5 Hyperlipidemia, unspecified; G89.29 Other chronic pain; M54.9 Dorsalgia, unspecified; F17.210 Nicotine dependence, cigarettes, uncomplicated; E78.00 Pure hypercholesterolemia, unspecified; Z95.1 Presence of aortocoronary bypass graft; Z95.5 Presence of coronary angioplasty implant and graft; Z79.899 Other long term (current) drug therapy; Z79.82 Long term (current) use of aspirin; Z79.02 Long term (current) use of antithrombotics/antiplatelets
CPT/HCPCS: 93459; 92937; C1760; C1769 ×6; C1887 ×2; C1725; C1894; J2250; J1940; J2001; J3010; J1644; Q9967; 92920

== ENCOUNTER → 2021-07-16 | Outpatient (CLI) | payer MEDICARE ==
[2021-07-16 15:01] LABS: HCT 42.2 % (37.2-46.3); HGB 14.1 g/dL (12.0-15.0); MCH 30.4 pg (27.0-32.0); MCHC 33.4 g/dL (32.0-37.0); MCV 90.9 fL (80.0-97.0); Mean Platelet Volume 11.4 fL (9.5-12.2); NRBC Per 100 WBC 0 /100 WBCS (0.0-0.0); Platelet Count 197 X 10*3/uL (140-440); RBC 4.64 X 10*6/uL (4.10-5.20); RDW 13.2 % (11.5-14.5); WBC 4.86 X 10*3/uL (4.50-10.00)
[2021-07-16 15:11] LABS: African American GFR (CKD) 66.6 (60.0-200.0); Anion Gap 15.7 mmol/L (10.00-18.00); BUN/Creat Ratio 13.59 Ratio (12.00-20.00); Blood Urea Nitrogen 12.6 mg/dL (9.0-27.0); Calcium 9.8 mg/dL (8.7-10.3); Carbon Dioxide 23.7 mmol/L (20.0-27.5); Non-African American GFR(CKD) 57.5 (60.0-200.0); Potassium 4.2 mmol/L (3.5-5.5)
== END | disposition home or self-care (01) ==
LOC: LABWHC1 09:15
PROVIDERS: ATTEND Internal Medicine Interventional Cardiology
DX: I25.10 Atherosclerotic heart disease of native coronary artery without angina pectoris (principal)
CPT/HCPCS: 36415; 80048; 85027

== ENCOUNTER 2021-07-23 07:01 | Day surgery (SDC) | payer MEDICARE ==
[2021-07-22 10:02] VITALS: BMI 30.3
[~2021-07-23 07:01] MED LIST changes: +ATORVASTATIN 80 MG TAB PO STA; +HEPARIN SODIUM,PORCINE 10,000 UNIT in SODIUM CHLORIDE 0.9% 1,000 ML IRRIGATION PRN; +HEPARIN SODIUM,PORCINE 2,500 UNIT in SODIUM CHLORIDE 0.9% 250 ML IRRIGATION PRN; -SODIUM CHLORIDE 0.9% 1,000 ML in EMPTY BAG 1 BAG IV SCH
[2021-07-23] MEDS ORDERED: SODIUM CHLORIDE 0.9% 1,000 ML IV ONE (07:18)
[2021-07-23] MEDS ORDERED: HEPARIN SODIUM 1,000 UN/ML (10ML VL) ONE (08:56)
[2021-07-23] MEDS ORDERED: LIDOCAINE 1% INJ 10MG/ML (20 ML MDV) ONE (08:56)
[2021-07-23] MEDS: MIDAZOLAM 2 MG/2 ML VIAL IV ONE ×3 (09:30→11:36)
[2021-07-23] MEDS ORDERED: LIDOCAINE 1% INJ 10MG/ML (20 ML MDV) SQ ONE (09:34)
[2021-07-23] MEDS ORDERED: fentaNYL (PF) 50 MCG/ML 2 ML AMP ONE (09:35)
[2021-07-23] MEDS: fentaNYL (PF) 50 MCG/ML 2 ML AMP IV ONE ×2 (09:35→10:25)
[2021-07-23] MEDS: HEPARIN SODIUM 1,000 UN/ML (10ML VL) IV ONE ×2 (09:52→12:14)
[2021-07-23] MEDS ORDERED: HEPARIN SODIUM 1,000 UN/ML (10ML VL) IV ONE ×3 (09:52→11:31)
[2021-07-23] MEDS: NITROGLYCERIN 1000MCG/10ML SYRINGE INTRACORON ONE ×2 (10:07→12:07)
[2021-07-23] MEDS ORDERED: NITROGLYCERIN 1000MCG/10ML SYRINGE INTRACORON ONE (10:07)
[2021-07-23] MEDS ORDERED: IOPAMIDOL-370 100ML BTL INJ ONE ×4 (10:25→12:14)
[2021-07-23] MEDS ORDERED: CLOPIDOGREL 75 MG TAB ONE (12:10)
[2021-07-23] MEDS ORDERED: CLOPIDOGREL 75 MG TAB PO ONE (12:14)
[2021-07-23] MEDS ORDERED: NITROGLYCERIN SL TABS 0.4 MG TAB SUBLINGUAL PRN (12:40)
[2021-07-23] MEDS ORDERED: RX INFO: IV CONTRAST WAS GIVEN 1 EACH MISC MISCELLANE PRN (12:51)
[2021-07-23] MEDS ORDERED: ATROPINE SULFATE 0.1 MG/ML 10ML SYRINGE IV PRN (12:51)
[2021-07-23] MEDS ORDERED: MAG HYDROX/AL HYDROX/SIMETH 30 ML CUP PO PRN (12:51)
[2021-07-23] MEDS ORDERED: ZOLPIDEM 5 MG TAB PO PRN (12:51)
--- NOTE | 2021-07-23 13:33 | PTCA ---
PERCUTANEOUSTRANS CORORONARY ANGIOGRAPHY DATE OF SERVICE: 07/23/2021. PROCEDURE: 1. PTCA and stenting of saphenous vein graft to the diagonal branch of LAD. 2. PTCA and stenting of a chronic total occlusion of [place] first obtuse marginal branch of circumflex. The vein graft to this vessel was occluded and therefore [place] vessel was advised to be stented. PERFORMED BY: Dr. Laura Montoya. SEDATION: Moderate conscious sedation time was 2:00 am and 45 minutes. CLINICAL INFORMATION: Mrs. Janel Penn is an 81-year-old lady with a known history of CAD, previous bypass surgery and PCI. She also has history of surgical repair of abdominal aortic aneurysm in the past, hypertension, hyperlipidemia, and chronic back pain. In 2007, she underwent aortocoronary bypass surgery and at that time she had a bypass to HENRY to LAD, vein graft to the PDA branch of RCA as well as vein graft to the diagonal and vein graft to the obtuse marginal. The vein graft to the obtuse marginal and the RCA/PDA graft were dilated in November and December of 2019. She came in with symptoms of shortness of breath suggestive of angina with significant evidence of ischemia and therefore cardiac catheterization was performed about a week ago which revealed that the vein graft to obtuse marginal was occluded but the vein graft to the PDA branch of RCA was widely patent. The vein graft to the diagonal had significant disease and also I suggested that we will try and open up the [place] OM which was a chronic total occlusion. She was brought in for the procedure electively. Risks, benefits, options, rationale explained to the patient as well as her daughter from [place]. PROCEDURE NOTE: Under local anesthesia and strict aseptic precautions, a 6-Vincentian introducer was placed in the right femoral artery. I had to use an Amplatz Stiff wire and dilator because of chronic scar tissue. I started out with a left bypass guide catheter of 6-Vincentian caliber, cannulated the diagonal graft. A run-through wire was used to cross the lesion. A 2.5 caliber NC Trek balloon of 8 mm length was used to pre-dilate the lesion. I then deployed a 12 mm long 3.25 caliber Xience stent with excellent result. I then turned my attention to the [place] circumflex marginal. I changed the guide to an XB 3.5 guide catheter to cannulate the left main coronary artery. I used a whisper long wire along with a 90 degree super cross. With this combination, after substantial effort, I was able to cross the total occlusion in the obtuse marginal. The angle of the obtuse marginal as it came off from the main circumflex was 90 degrees, and there was another 90 degree bend. The wire was kept in the distal aspect of the obtuse marginal. I tried a 2.0 balloon, but I could not advance it. I used a 1.0 caliber Sapphire balloon of 10 mm length. With this, I was able to open of the beginning portion of the vessel. The same balloon was used to give dilatation throughout the obtuse marginal until the attachment of the bypass graft which has since then been occluded. After this, I used a 1.5 balloon and then went to a 2.0 balloon eventually with a 2.25 NC Trek balloon. I had a lot of difficulty advancing the 2.25 balloon. Eventually I felt that I should dilate the ostium of this obtuse marginal and so I went with a 2.5 caliber 8 mm NC Trek balloon and gave a little inflation up to 14 atmospheres. I then advanced a 2.0 caliber 18 mm long rober Medtronic stent and this stent was deployed with the distal end right at the attachment of the bypass graft. This was deployed at 14 atmospheres. I then advanced with some difficulty. I could not advance a 15 mm stent and therefore I used two 8 mm stents and these were telescoped proximal to the 18 mm stent and both of these were also 2.0 [place] stents. The entire stented segment which had two 8 mm stents proximally and an 18 mm stent distally and all of these were 2.0 caliber stents. This entire length of this stented segment was post dilated with a 2.75 caliber NC Trek balloon at 14 atmospheres. Patient had excellent angiographic result without complication. There was a remarkably good flow noted. She received additional 150 mg of Plavix. The sheath was taken out and Angio- Seal device used to secure hemostasis and she was sent to the room in stable condition. Moderate conscious sedation time was 2 hours and 45 minutes. The patient's ACT was kept between 250 and 300. The results were discussed with the patient as well as her daughter. I expect she will be discharged tomorrow if she remains stable. MMODL / IJN: [id number] /
[2021-07-23] MEDS: SODIUM CHLORIDE 0.9% 1,000 ML in EMPTY BAG 1 BAG IV SCH ×2 (15:49→17:37)
[2021-07-23] MEDS ORDERED: ACETAMINOPHEN TAB 325 MG TAB PO PRN (19:36)
[2021-07-23] MEDS ORDERED: ATORVASTATIN 80 MG TAB PO SCH ×2 (21:00)
[2021-07-24] MEDS: SODIUM CHLORIDE 0.9% 1,000 ML in EMPTY BAG 1 BAG IV SCH (03:36)
[2021-07-24 06:02] VITALS: RESP 16
[2021-07-24] MEDS ORDERED: SODIUM CHLORIDE 0.9% 1,000 ML in EMPTY BAG 1 BAG IV SCH (06:30)
[2021-07-24 07:50] LABS: Basophils % (A) 1 %; Eosinophils # (A) 0.1 k/uL (0-0.7); Eosinophils % (A) 2 %; HCT 34.6 % (34.0-46.0); HGB 11.9 gm/dL (11.4-16.0); Lymphocytes # (A) 1.4 k/uL (1.0-4.8); Lymphocytes % (A) 30 %; MCH 32.2 pg (25.0-35.0); MCHC 34.4 g/dL (31.0-37.0); MCV 93.7 fL (80.0-100.0); Mean Platelet Volume 8.5; Monocytes # (A) 0.3 k/uL (0-1.0); Monocytes % (A) 6 %; Neutrophils # (A) 2.7 k/uL (1.3-7.7); Neutrophils % (A) 60 %; Platelet Count 146 k/uL (150-450); RBC 3.69 m/uL (3.80-5.40); RDW 13.6 % (11.5-15.5); WBC 4.5 k/uL (3.8-10.6)
[2021-07-24 08:06] LABS: African American GFR (CKD) 85 (>60 ml/min/1.73 sqM); Anion Gap 6 mmol/L; Blood Urea Nitrogen 16 mg/dL (7-17); Calcium 8.5 mg/dL (8.4-10.2); Carbon Dioxide 24 mmol/L (22-30); Chloride 107 mmol/L (98-107); Glucose 88 mg/dL (74-99); Non-African American GFR(CKD) 74 (>60 ml/min/1.73 sqM); Potassium 3.8 mmol/L (3.5-5.1); Sodium 137 mmol/L (137-145)
[2021-07-24 08:11] VITALS: BP 123/64; PULSE 59; TEMP 97.5
[2021-07-24] MEDS ORDERED: METOPROLOL TARTRATE 25 MG TAB PO SCH ×2 (09:00)
[2021-07-24] MEDS ORDERED: CLOPIDOGREL 75 MG TAB PO SCH ×2 (09:00)
[2021-07-24] MEDS ORDERED: LOSARTAN-HCTZ 50-12.5 MG 1 EACH TAB PO SCH (09:00)
[2021-07-24] MEDS ORDERED: ASPIRIN 81 MG PO SCH ×3 (09:00→21:00)
--- NOTE | 2021-07-24 10:23 | DS ---
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 Procedure was performed on right femoral approach, long procedure, excellent result, doing well. She had drug-eluting stents placed. She is doing well this morning, asymptomatic. Vitals are stable. Right groin is clean and dry. No JVD. S1-S2 heard normally. Short systolic murmur noted. Lungs revealed decent air entry. Abdomen is soft, nontender. Lower extremities with diminished pulses. Central nervous system is normal. Right groin is clean and dry. EKG and labs are good. Plan is to increase activity and discharge her on current medications include dual antiplatelet therapy, statins and beta blockers. I will see her in the office on Tuesday afternoon. Discharge instructions regarding diet, activity, medicines were given. MMODL / IJN: [id number] /
== END 2021-07-24 11:15 | disposition home or self-care (01) ==
LOC: CATHCVL 07:01 → 6NMEDSUR 12:15 → CATHCVL 07-24 11:15
PROVIDERS: ATTEND Internal Medicine Interventional Cardiology
DX: I25.110 Atherosclerotic heart disease of native coronary artery with unstable angina pectoris (principal); I25.82 Chronic total occlusion of coronary artery; I25.710 Atherosclerosis of autologous vein coronary artery bypass graft(s) with unstable angina pectoris; I10 Essential (primary) hypertension; E78.00 Pure hypercholesterolemia, unspecified; Z20.822 Contact with and (suspected) exposure to COVID-19; E78.5 Hyperlipidemia, unspecified; R94.39 Abnormal result of other cardiovascular function study; G89.29 Other chronic pain; M54.9 Dorsalgia, unspecified; Z98.890 Other specified postprocedural states; Z79.02 Long term (current) use of antithrombotics/antiplatelets; Z79.82 Long term (current) use of aspirin; Z79.899 Other long term (current) drug therapy
CPT/HCPCS: 80048; 82565; 85025; 87635; C1769 ×5; C9600; C9604; C1760; C1887 ×3; C1725 ×6; C1894; C1874 ×2; J2250; J2001; J3010; J1644; Q9967

== ENCOUNTER → 2021-10-16 | Outpatient (CLI) | payer MEDICARE ==
--- NOTE | 2021-10-19 20:13 | MM ---
Reason for Exam: Screening (asymptomatic). Last mammogram was performed 2 year(s) and 10 month(s) ago. Patient History: Menarche at age 12. First Full-Term at age 22. Postmenopausal. Estrogen for 6 months until age 54. Risk Values: Kathryn 5 year model risk: 1.4%. NCI Lifetime model risk: 1.9%. Prior Study Comparison: 11/04/2016 Bilateral Screening Mammogram, [facility]. 11/28/2017 Bilateral Screening Mammogram, [facility]. 12/18/2018 Bilateral Screening Mammogram, [facility]. Tissue Density: There are scattered fibroglandular densities. Findings: Analyzed By CAD. No significant change from prior exams. Overall Assessment: Negative, BI-RAD 1 Management: Screening Mammogram of both breasts in 1 year. A clinical breast exam by your physician is recommended on an annual basis and results should be correlated with mammographic findings. Also, the patient should continue monthly self breast exams. Electronically signed and approved by: Chaim Golden M.D. Radiologist
== END | disposition home or self-care (01) ==
LOC: RADMAMWWP 09:56
PROVIDERS: ATTEND Internal Medicine
DX: Z12.31 Encounter for screening mammogram for malignant neoplasm of breast (principal); Z78.0 Asymptomatic menopausal state
CPT/HCPCS: 77063; 77067

== ENCOUNTER 2022-12-22 13:36 | Emergency (ER) | payer MEDICARE ==
--- NOTE | 2022-12-22 14:05 | ED ---
General Adult HPI - General Chief complaint: Extremity Injury, Lower Stated complaint: rt knee pain & swelling - poss DVT Time Seen by Provider: 12/22/22 13:49 Source: patient, RN notes reviewed Mode of arrival: wheelchair Limitations: physical limitation - History of Present Illness Initial comments: 82-year-old female presents to the emergency department with chief complaint of right knee pain with lower extremity swelling. She states that she was evaluated at [facility] urgent care center for DVT rule out. She reports that the pain is been going on for about 1 week. She states that she is on Plavix but no other blood thinners. She reports normal range of motion with some pain with knee flexion. - Related Data Home Medications Medication Instructions Recorded Confirmed Aspirin [Adult Low Dose Aspirin EC] 81 mg PO DAILY 11/14/19 07/23/21 Atorvastatin [Lipitor] 80 mg PO HS 11/14/19 07/23/21 Cholecalciferol [Vitamin D3 (25 2,000 unit PO DAILY 11/14/19 07/23/21 Mcg = 1000 Iu)] Metoprolol Tartrate [Lopressor] 25 mg PO DAILY 11/14/19 07/23/21 Multivitamins, Thera [Multivitamin 1 tab PO DAILY 11/14/19 07/22/21 (formulary)] Nitroglycerin Sl Tabs [Nitrostat] 0.4 mg SUBLINGUAL Q5M PRN 11/14/19 07/22/21 Overton-3 Fatty Acids/Fish Oil [Fish 1,200 mg PO DAILY 11/14/19 07/22/21 Oil 1,000 mg Softgel] Ubidecarenone [Co Q-10] 200 mg PO DAILY 11/14/19 07/23/21 Clopidogrel [Plavix] 75 mg PO DAILY 12/24/19 07/23/21 Biotin [Biotin Disolve] 5,000 mcg PO DAILY 07/08/21 07/23/21 Losartan/Hydrochlorothiazide 1 tab PO DAILY 07/08/21 07/23/21 [Losartan-Hctz 100-25 mg Tab] Previous Rx's Medication Instructions Recorded Lidocaine 5% Patch [Lidoderm 5% 1 patch TOPICAL DAILY #30 patch 12/22/22 Patch] Allergies Allergy/AdvReac Type Severity Reaction Status Date / Time nickel Allergy Itching Verified 12/22/22 13:47 Review of Systems ROS Statement: Those systems with pertinent positive or pertinent negative responses have been documented in the HPI. ROS Other: All systems not noted in ROS Statement are negative. Past Medical History Past Medical History: Chest Pain / Angina, Hyperlipidemia, Hypertension Additional Past Medical History / Comment(s): large abd. hernia left side, recent SOB w/exertion especially stair climbing, recent stress test History of Any Multi-Drug Resistant Organisms: None Reported Past Surgical History: Appendectomy, Coronary Bypass/CABG, Heart Catheterization, Heart Catheterization With Stent, Joint Replacement Additional Past Surgical History / Comment(s): AAA repair, rt hip replacement,reva cataracts, quad bypass, recent heart cath. Past Anesthesia/Blood Transfusion Reactions: No Reported Reaction Date of Last Stent Placement:: 2019 Past Psychological History: No Psychological Hx Reported Smoking Status: Former smoker Past Alcohol Use History: Rare Past Drug Use History: None Reported - Past Family History Sister(s) Additional Family Medical History / Comment(s): scleroderma Brother(s) Family Medical History: Cancer Additional Family Medical History / Comment(s): Lung cancer Mother Family Medical History: Coronary Artery Disease (CAD) General Exam Limitations: no limitations General appearance: alert, in no apparent distress Head exam: Present: atraumatic, normocephalic, normal inspection Eye exam: Present: normal appearance, PERRL, EOMI. Absent: scleral icterus, conjunctival injection, periorbital swelling ENT exam: Present: normal exam, mucous membranes moist Neck exam: Present: normal inspection. Absent: tenderness, meningismus, lymphadenopathy Respiratory exam: Present: normal lung sounds bilaterally. Absent: respiratory distress, wheezes, rales, rhonchi, stridor Cardiovascular Exam: Present: regular rate, normal rhythm, normal heart sounds. Absent: systolic murmur, diastolic murmur, rubs, gallop, clicks GI/Abdominal exam: Present: soft, normal bowel sounds. Absent: distended, tenderness, guarding, rebound, rigid Extremities exam: Present: normal inspection, full ROM, normal capillary refill, pedal edema (Right-sided). Absent: tenderness, joint swelling, calf tenderness Back exam: Present: normal inspection Neurological exam: Present: alert, oriented X3 Psychiatric exam: Present: normal affect, normal mood Skin exam: Present: warm, dry, intact, normal color. Absent: rash Course Vital Signs 12/22/22 12/22/22 13:43 15:48 Temperature 98.6 F 98.1 F Pulse Rate 57 L 61 Respiratory 20 16 Rate Blood Pressure 147/69 145/82 O2 Sat by Pulse 97 99 Oximetry Medical Decision Making - Medical Decision Making Was pt. sent in by a medical professional or institution (, ISHA, VICE PRESIDENT OF SOFTWARE DEVELOPMENT, urgent care, hospital, or detention...) When possible be specific @ -[facility] urgent [facility] Did you speak to anyone other than the patient for history (EMS, parent, family, police, friend...)? What history was obtained from this source @ -No Did you review nursing and triage notes (agree or disagree)? Why? @ -I reviewed and agree with nursing and triage notes Were old charts reviewed (outside hosp., previous admission, EMS record, old EKG, old radiological studies, urgent care reports/EKG's, detention records)? Report findings @ -No old charts were reviewed Differential Diagnosis (chest pain, altered mental status, abdominal pain women, abdominal pain men, vaginal bleeding, weakness, fever, dyspnea, syncope, headache, dizziness, GI bleed, back pain, seizure, CVA, palpatations, mental health, musculoskeletal)? @ -Differential Musculoskeletal Muscular strain, contusion, ligament sprain, fracture, arthritis, septic arthritis, bursitis, cellulitis, muscle spasm, nerve compression, DVT, arterial occlusion, herpes zoster, electrolyte abnormality, tumor.... This is not meant to be in all inclusive list EKG interpreted by me (3pts min.). @ -none X-rays interpreted by me (1pt min.). @ -XR right knee shows osteoarthritic changes CT interpreted by me (1pt min.). @ -None done U/S interpreted by me (1pt. min.). @ -US right LE negative for DVT, shrestha cyst present What testing was considered but not performed or refused? (CT, X-rays, U/S, labs)? Why? @ -None What meds were considered but not given or refused? Why? @ -None Did you discuss the management of the patient with other professionals (professionals i.e. ISHA Blank, VICE PRESIDENT OF SOFTWARE DEVELOPMENT, lab, RT, psych nurse, school social worker, oxyhydrogen welder, teacher, chief informatics officer, disability case manager)? Give summary @ -No Was smoking cessation discussed for >3mins.? @ -No Was critical care preformed (if so, how long)? @ -No Were there social determinants of health that impacted care today? How? (Homelessness, low income, unemployed, alcoholism, drug addiction, transportation, low edu. Level, literacy, decrease access to med. care, long term, rehab)? @ -No Was there de-escalation of care discussed even if they declined (Discuss DNR or withdrawal of care, Hospice)? DNR status @ -No What co-morbidities impacted this encounter? (DM, HTN, Smoking, COPD, CAD, Cancer, CVA, ARF, Chemo, Hep., AIDS, mental health diagnosis, sleep apnea, morbid obesity)? @ -None Was patient admitted / discharged? Hospital course, mention meds given and route, prescriptions, significant lab abnormalities, going to OR and other pertinent info. @ -Discharged. Patient presented to emergency department with chief complaint of right pain. She states that she had earlier today who sent her in for DVT rule out she has unilateral leg swelling. She'll right leg is not erythematous. Patient has good range of motion at the right knee. X-ray obtained of the right knee shows degenerative changes. US of the right lower extremity was negative for DVT, shrestha cyst present. Patient was advised on these findings and to take Tylenol as needed for pain. Patient was sent prescription for lidocaine patches to apply. Patient is going to follow up with her primary care provider. Patient stable at time of discharge. Case discussed with my attending, Dr. Bain Undiagnosed new problem with uncertain prognosis? @ -No Drug Therapy requiring intensive monitoring for toxicity (Heparin, Nitro, Insulin, Cardizem)? @ -No Were any procedures done? @ -No Diagnosis/symptom? @ -right knee pain Acute, or Chronic, or Acute on Chronic? @ -acute Uncomplicated (without systemic symptoms) or Complicated (systemic symptoms)? @ -uncomplicated Side effects of treatment? @ -No Exacerbation, Progression, or Severe Exacerbation? @ -No Poses a threat to life or bodily function? How? (Chest pain, USA, LA, pneumonia, PE, COPD, DKA, ARF, appy, cholecystitis, CVA, Diverticulitis, Homicidal, Suicidal, threat to staff... and all critical care pts) @ -No Disposition Clinical Impression: Right knee pain Disposition: HOME SELF-CARE Condition: Stable Instructions (If sedation given, give patient instructions): Martin Cyst (ED), Knee Pain (ED) Additional Instructions: Follow up with your primary care provider. Continue taking Tylenol as needed for pain. Return to the emergency department for new or worsening symptoms. Prescriptions: Lidocaine 5% Patch [Lidoderm 5% Patch] 1 patch TOPICAL DAILY #30 patch Is patient prescribed a controlled substance at d/c from ED?: No Referrals: Imtiaz Canchola MD [Primary Care Provider] - 1-2 days Time of Disposition: 15:34
--- NOTE | 2022-12-22 15:16 | US ---
EXAMINATION TYPE: US venous doppler duplex LE RT DATE OF EXAM: 12/22/2022 2:47 PM COMPARISON: NONE CLINICAL INDICATION: Female, 82 years old with history of pain; knee pain SIDE PERFORMED: Right TECHNIQUE: The lower extremity deep venous system is examined utilizing real time linear array sonog facundo with graded compression, doppler sonography and color-flow sonography. VESSELS IMAGED: Common Femoral Vein Deep Femoral Vein Greater Saphenous Vein * Femoral Vein Popliteal Vein Small Saphenous Vein * Proximal Calf Veins (* superficial vessels) Right Leg: Negative for DVT 3.7 x 2.6 cm complex fluid collection seen medial pop fossa IMPRESSION: 1. No ultrasound evidence for deep venous thrombosis of the right lower extremity. 2. Complex Salazar's cyst.
--- NOTE | 2022-12-22 15:23 | XR ---
EXAMINATION TYPE: XR knee complete RT DATE OF EXAM: 12/22/2022 3:19 PM INDICATION: Patient age:Female; 82 years old; Reason for study: LE swelling; PHH. COMPARISON: None. TECHNIQUE: The Right knee(s) was examined in 3 projections. Frontal, lateral and oblique. FINDINGS: No acute fracture or dislocation. There is joint space narrowing of the medial tibiofemor al and patellofemoral joints. Prominent suprapatellar spurring noted. No soft tissue edema or sizable joint effusion. Vascular sclerosis. Surgical clips demonstrate within the posterior medial knee soft tissues. IMPRESSION: 1. No acute osseous pathology. 2. Mild to moderate osteoarthritic changes.
[2022-12-22 15:49] VITALS: BP 145/82; PULSE 61; RESP 16; TEMP 98.1
== END 2022-12-22 15:50 | disposition home or self-care (01) ==
LOC: EC 13:36
DX: M25.561 Pain in right knee (principal); I10 Essential (primary) hypertension; E78.5 Hyperlipidemia, unspecified; Z79.82 Long term (current) use of aspirin; Z79.899 Other long term (current) drug therapy; Z87.891 Personal history of nicotine dependence; Z91.018 Allergy to other foods
CPT/HCPCS: 99284

== ENCOUNTER → 2023-02-16 | Outpatient (CLI) | payer MEDICARE ==
[2023-02-16 16:10] LABS: Basophils # (A) 0.02 X 10*3/uL (0.00-0.10); Basophils % (A) 0.3 %; Eosinophils # (A) 0.07 X 10*3/uL (0.04-0.35); Eosinophils % (A) 1.1 %; HGB 13.3 d/dL (12.0-15.0); Lymphocytes # (A) 1.83 X 10*3/uL (0.90-5.00); Lymphocytes % (A) 29.4 %; MCH 30.2 pg (27.0-32.0); MCHC 33.3 d/dL (32.0-37.0); MCV 90.9 FL (80.0-97.0); Monocytes # (A) 0.48 X 10*3/uL (0.20-1.00); Monocytes % (A) 7.7 %; NRBC Per 100 WBC 0 X 10*3/uL (0.00-0.01); Neutrophils # (A) 3.82 X 10*3/uL (1.80-7.70); Neutrophils % (A) 61.3 %; Platelet Count 182 X 10*3/uL (140-440); RDW 13.9 % (11.5-14.5); WBC 6.23 X 10*3/uL (4.50-10.00)
[2023-02-16 16:15] LABS: ALT 19 U/L (8-44); AST 22 U/L (13-35); Albumin 4.5 d/dL (3.8-4.9); Albumin/Globulin Ratio 2.05 Ratio (1.60-3.17); Alkaline Phosphatase 80 U/L (41-126); BUN/Creat Ratio 16.12 Ratio (12.00-20.00); Blood Urea Nitrogen 12.9 mg/dL (9.0-27.0); Carbon Dioxide 29.1 mmol/L (21.6-31.8); Chloride 101 mmol/L (96-109); Chol/HDL Ratio 3.51 Ratio; Globulin 2.2 d/dL (1.6-3.3); Glucose 94 mg/dL (70-110); LDL Cholesterol,Calculated 75.2 mg/dL (0.0-131.0); Potassium 4.7 mmol/L (3.5-5.5); Sodium 140 mmol/L (135-145); Total Bilirubin 0.7 mg/dL (0.3-1.2); Total Protein 6.7 d/dL (6.2-8.2)
== END | disposition home or self-care (01) ==
LOC: LABWHC1 08:45
PROVIDERS: ATTEND Family Medicine
DX: Z00.00 Encounter for general adult medical examination without abnormal findings (principal)
CPT/HCPCS: 36415; 80053; 80061; 84443; 85025

== ENCOUNTER → 2023-04-15 | Outpatient (CLI) | payer MEDICARE ==
--- NOTE | 2023-04-15 14:43 | BD ---
EXAMINATION TYPE: Axial Bone Density DATE OF EXAM: 04/15/2023 CLINICAL HISTORY: 82 years old Female. ICD-10 CODE: M85.80 osteopenia Height: 61 Weight: 163 FRAX RISK QUESTIONS: History of Fracture in Adulthood: no Secondary Osteoporosis: no Rheumatoid Arthritis: no RISK FACTORS HISTORY OF: Surgery to Hip(right): yes When: 2015 Family History of Osteoporosis: no Active: yes Diet low in dairy products/other sources of calcium: no Postmenopausal woman: yes, 53 Lost more than 2 inches in height since high school: yes, 63.75 Frequent falls: no Poor Health: no MEDICATIONS: Additional Medications: yes heart meds, hbp meds, cholesterol EXAM MEASUREMENTS: Bone mineral densitometry was performed using the [employer]. Bone mineral density as measured about the Lumbar spine is: ----- L1-L4(G/cm2): 1.352 T Score Values are as follows: ----- L1: -0.2 ----- L2: 0.6 ----- L3: 1.8 ----- L4: 2.7 ----- L1-L4: 1.4 Z Score Values are as follows: ----- L1: 1.4 ----- L2: 2.2 ----- L3: 3.4 ----- L4: 4.3 ----- L1-L4: 3.0 Bone mineral density has: Increased 1.0% since study of: 02.03.2021 Bone mineral density about the L hip (g/cm2): 0.877 T Score values are as follows: -----L Neck: -1.2 -----L Total: -1.9 Z Score values are as follows: -----L Neck: 1.0 -----L Total: 0.1 Bone mineral density has: Decreased -9.4% since study of: 02.03.2021 FRAX%s: The graph provided illustrates a 11.8% chance for a major osteoporotic fx and a 2.7% chance f or the hips probability for fx in 10 years time. IMPRESSION: Osteopenia (T Score between -2.5 and -1). There is slightly increased risk of fracture and the patient may be considered for treatment. Re-Screen 2-5 years. NOTE: T-SCORE=SD OF THE YOUNG ADULT MEAN.
--- NOTE | 2023-04-18 08:30 | MM ---
Reason for Exam: Screening (asymptomatic). Last mammogram was performed 1 year(s) and 6 month(s) ago. Patient History: Menarche at age 12. First Full-Term at age 22. Postmenopausal. Estrogen for 6 months until age 54. Risk Values: Kathryn 5 year model risk: 1.3%. NCI Lifetime model risk: 1.7%. Prior Study Comparison: 11/28/2017 Bilateral Screening Mammogram, [facility]. 12/18/2018 Bilateral Screening Mammogram, [facility]. 10/16/2021 Bilateral MG 3D screening mammo w/cad, [facility]. Tissue Density: The breast tissue is almost entirely fat. Findings: Analyzed By CAD. There is no suspicious group of microcalcifications or new suspicious mass. Overall Assessment: Negative, BI-RAD 1 Management: Screening Mammogram of both breasts in [address] [facility] will attempt to contact patient to return for supplemental views and ultrasound if indicated. Patient should continue monthly self-breast exams. A clinical breast exam by your physician is recommended on an annual basis. This exam should not preclude additional follow-up of suspicious palpable abnormalities. Note on Kathryn scores and lifetime risk: 1. A Kathryn score greater than 3% is considered moderate risk. If this is the case, consider specialist referral to assess eligibility for a risk reducing agent. 2. If overall lifetime risk for the development of breast cancer is 20% or higher, the patient may qualify for future screening with alternating mammogram and breast MRI. Electronically signed and approved by: Tyrone López DO
== END | disposition home or self-care (01) ==
LOC: RADBDWWP 09:15
PROVIDERS: ATTEND Family Medicine
DX: Z12.31 Encounter for screening mammogram for malignant neoplasm of breast (principal); M85.852 Other specified disorders of bone density and structure, left thigh; Z78.0 Asymptomatic menopausal state
CPT/HCPCS: 77063; 77067; 77080

== ENCOUNTER → 2024-12-13 | Outpatient (CLI) | payer MEDICARE ==
[2024-12-13 19:44] LABS: Gliadin AB IgA, Deaminated Negative (Negative); Gliadin AB IgA, Unit <0.5 U/mL; Gliadin AB IgG, Deaminated Negative (Negative); Gliadin AB IgG, Unit <0.4 U/mL
== END | disposition home or self-care (01) ==
LOC: LABWHC1 12:03
PROVIDERS: ATTEND Family Medicine
DX: R19.7 Diarrhea, unspecified (principal)
CPT/HCPCS: 36415; 83516; 87045; 87046; 87328; 87329